=== PATIENT | female | born 1990 | race Two or more races ===

== ENCOUNTER 2023-10-05 09:27 | Emergency (ER) | payer MEDICAID ==
[~2023-10-05] VITALS: Ht 157.5 cm; Wt 71.1 kg
[2023-10-05 10:03] LABS: Urine Bacteria None Seen /hpf (None Seen)
[2023-10-05 10:11] LABS: Basophils # (auto) 0 10 ^3/uL (0-0.2); Basophils % (auto) 0.4 % (0.0-2.0); Eosinophils # (auto) 0 10 ^3/uL (0-0.8); Eosinophils % (auto) 0.1 % (0.0-7.0); Hemoglobin 11.9 g/dL (12.2-16.2); Lymphocytes # (auto) 0.7 10 ^3/uL (0.4-5.4); Lymphocytes % (auto) 6.8 % (10.0-50.0); Mean Corpuscular Hemoglobin 30.5 pg (28.0-32.0); Mean Corpuscular Hgb Conc. 33.1 g/dL (32.0-36.0); Monocytes # (auto) 0.3 10 ^3/uL (0-1.3); Monocytes % (auto) 3.1 % (0.0-12.0); Neutrophils # (auto) 9.5 10 ^3/uL (1.6-8.6); Neutrophils % (auto) 89.6 % (37.0-80.0); Red Blood Cells 3.91 10^6/uL (4.0-5.20); Red Cell Distribution Width 12.8 % (11.8-14.3); White Blood Cell 10.6 10^3/uL (4.4-10.8)
[2023-10-05 10:18] LABS: Urine Blood Negative /uL (Negative); Urine Clarity Clear (Clear); Urine Color Light-Yellow (Yellow); Urine Mucus FEW (None Seen); Urine Protein, UAD Negative (Negative); Urine Urobilinogen Normal (Negative); Urine WBC 1 /hpf (0 - 5)
[2023-10-05 10:24] LABS: Chloride 101 mmol/L (98-107); Potassium 3.5 mmol/L (3.5-5.1); Sodium 133 mmol/L (136-145)
[2023-10-05 10:25] LABS: Anion Gap 7 (5-15); Carbon Dioxide 25 mmol/L (20-30)
[2023-10-05 10:26] LABS: Calcium 9.6 mg/dL (8.5-10.1)
[2023-10-05 10:30] LABS: BUN/Creatinine Ratio 14.3 (10.0-20.0); Blood Urea Nitrogen 7 mg/dL (9-23); Glucose 132 mg/dL (74-106)
[2023-10-05] MEDS ORDERED: PANT40TA2 PO (11:59)
[2023-10-05 12:13] VITALS: BP 113/72; PULSE 82; RESP 16; TEMP 98.3; O2SAT 95
[2023-10-05] MEDS: PANTOPRAZOLE 40 MG TAB PO ONE (12:16)
== END 2023-10-05 12:15 | disposition home or self-care (01) ==
LOC: ER 09:27
DX: K29.70 Gastritis, unspecified, without bleeding (principal)
CPT/HCPCS: 36415; 80048; 81001; 85025; 93005